=== PATIENT | female | born 1970 | race Caucasian/White ===

== ENCOUNTER 2024-07-14 08:30 | Outpatient (RCR) | payer MEDICAID, SELFPAY ==
--- NOTE | 2024-07-05 09:28 | PT.OIERPT ---
PT OP Initial Eval Patient Information Outpatient Physical Therapy Treatment Date: 07/05/24 Visit Reasons: Osteoarthritis of knee Medical Diagnosis: M17.9 Treatment Dx #1: B knee pain Start of Care: 07/05/24 Date of Onset: 10 yrs ago Smoking Status Smoking Status: Never smoker Initial Assessment Subjective: Pt is 53 yr old female who c/o B knee pain with long Hx. They hurt all day and pain level varies. Pt tries to exercise to lose weight but the knee pain limits standing and exercise tolerance. PMH: HTN, DM, morbid obesity. Imaging: Xrays in EMR -moderate to advanced OA B knees Pt goal: less pain to walk further Objective: B knee AROM: Flexion: 90 deg Extension: full Strength: 4-/5 quads and HS without pain Assessment: Pt presentation consistent with advanced B knee OA. Pt is morbidly obese and therapy may help her get some movement and exercise but it won't get rid of the pain and pt has poor rehab potential to meet goals due to severity of ssx. Pt may benefit from aquatic therapy and recumbent bike at home for temporary pain relief. Short Term and Nursing Home Goals 1. Ind with HEP 2. Tolerate 15 minutes of recumbent bike Treatment Plan 1. Manual therapy ? 2. Therex ? 3. Modalities as indicated, MHP, ice, estim Frequency and Duration: 1-2x a week for 2-3 trial visits Certification Dates: 07/05/24 to 10/03/24 Procedure Charges OP PT Eval Mod Complex 30 minutes: Yes
--- NOTE | 2024-07-08 09:16 | PT.ODAYNRPT ---
PT Outpatient Daily Note OP Daily Note Outpatient Physical Therapy Treatment Date: 07/08/24 Visit Reasons: Osteoarthritis of knee Subjective: Pain after last visit in B knees Objective: See F/S for therex Assessment: Pt did the bike for 16' with B knee pain with most movements Plan: Continue as tolerated Length of Time (minutes) of Treatment: 25 Minutes Procedure Charges Therapeutic Exercise 30 minutes: Yes
--- NOTE | 2024-07-14 10:13 | PT.ODS1RPT ---
PT OP Progress/Discharge Note Date of Service: 07/14/24 Progress Note/DC Note Progress Note/Discharge Note: DC Note Patient Information Visit Reasons: Osteoarthritis of knee Treatment Dx #1: B knee pain Service Continue Service or Discharge: Discharge Discharge Date: 07/14/24 Status Subjective: Continued pain after last visit in B knees Objective: See F/S for therex Same as time of evaluation Assessment: Pt attended the evaluation and 2 Rx visits with continued high pain in B knees. Pt did the bike for 16' to meet that goal and is independent with HEP. Pt not likely going to meet pain relief goals with conservative Rx since pain returns. Pt may benefit from aquatic therapy and recumbent bike for exercise. Plan: D/C with HEP Goals Achieved: 1. Ind with HEP 2. Tolerate 15 minutes of recumbent bike Procedure Charges Therapeutic Exercise 30 minutes: Yes
== END 2024-07-31 23:59 | disposition home or self-care (01) ==
LOC: CPTX 08:30
PROVIDERS: PCP Nurse Practitioner Family; Referring Provider Nurse Practitioner Family; Visit Provider Nurse Practitioner Family
DX: M25.562 Pain in left knee (principal); M25.561 Pain in right knee; E66.01 Morbid (severe) obesity due to excess calories; I10 Essential (primary) hypertension; E11.9 Type 2 diabetes mellitus without complications
CPT/HCPCS: 97110; 97162

== ENCOUNTER 2024-10-20 08:03 | Emergency (ER) | payer MEDICAID, SELFPAY ==
[2024-10-20 08:16] VITALS: BP 164/93; PULSE 89; RESP 18; TEMP 36.9; O2SAT 95; BMI 61.2
--- NOTE | 2024-10-20 08:28 | XR_ITS ---
Examination: CT abdomen and pelvis without contrast. Coronal 3-D reconstructions. Sagittal 2-D reconstructions. Date and time of exam:October 20, 2024 0837 hours Comparison November 02, 2014 INDICATIONS: Onset right-sided abdominal pain today CTDI: vol (mGy): 25.4 DLP: (mGycm): 1751 Technique: Axial images of the abdomen have been obtained, 3 mm slice thickness Intravenous contrast material has not been administered. Low dose protocols were performed. One or more of the following dose reduction techniques were used; automated exposure control, adjustment of the mA and/or KV according to patient size, use of iterative reconstruction technique. Findings: No focal liver or splenic lesions Fatty infiltration throughout the liver Hepatomegaly 21 cm No gallstones No pancreatic or adrenal mass Mild bilateral renal parenchymal scar formation No renal or ureteral calculi, no hydronephrosis No bowel obstruction 20 mm fat-containing umbilical hernia Normal appendix No diverticulitis Moderate stool in the rectum Anteverted uterus, suspicious for uterine fundal mass Contracted urinary bladder Advanced degenerative disc disease L2-L3 IMPRESSION: Hepatomegaly, 21 cm fatty infiltration throughout the liver Mild bilateral renal parenchymal scar formation Normal appendix No bowel obstruction or diverticulitis Recommend pelvic sonography follow-up to exclude uterine fundal mass
--- NOTE | 2024-10-20 08:28 | PD.EDRME ---
Rapid Medical Screening Exam RME Arrival date/time: 10/20/24 08:03 54-year-old female presents emergency department complaint of right-sided abdominal pain Chief Complaint: Abdominal Pain Vital signs: Vital Signs Temperature 98.4 F 10/20/24 08:16 Pulse Rate 89 10/20/24 08:16 Respiratory Rate 18 10/20/24 08:16 Blood Pressure 164/93 H 10/20/24 08:16 Pulse Oximetry (%) 95 10/20/24 08:16 Oxygen Delivery Method Room Air 10/20/24 08:16
[2024-10-20 10:18] LABS: Basophils # (Auto) 0.1 Thou/mm3 (0.0-0.2); Basophils % (Auto) 1 % (0-2.5); Eosinophils # (Auto) 0.4 Thou/mm3 (0.0-0.5); Eosinophils % (Auto) 3 % (0-10); Hematocrit 38.5 % (36.0-46.0); Hemoglobin 12.3 g/dL (12.0-16.0); Immature Granulocytes % (Auto) 0 % (0-0); Immature Granulocytes Auto 0.05 Thou/mm3 (0.00-0.00); Lymphocytes # (Auto) 3.2 Thou/mm3 (1.0-4.8); Lymphocytes % (Auto) 28 % (10-50); Mean Corpuscular HGB Conc 31.9 g/dl (31.0-37.0); Mean Corpuscular Hemoglobin 27.9 pg (25.0-35.0); Mean Corpuscular Volume 87 fL (80-100); Monocytes # (Auto) 0.6 Thou/mm3 (0.0-0.8); Monocytes % (Auto) 6 % (0-12); Neutrophils % (Auto) 62 % (37-80); Nucleated Red Blood Cell % 0 /100 WBC (0); Platelet Count 270 Thou/mm3 (140-440); RDW Standard Deviation 42.5 fL (36.4-46.3); Red Blood Count 4.41 Miln/mm3 (4.00-5.20); White Blood Count 11.3 Thou/mm3 (3.6-11.0)
[2024-10-20 10:49] LABS: Alanine Aminotransferase 9 U/L (10-49); Albumin, Serum 4.3 gm/dL (3.5-5.0); Albumin/Globulin Ratio 1.4 (1.2-2.2); Alkaline Phosphatase 113 U/L (46-116); Anion Gap 6 (7-16); Aspartate Amino Transferase 12 U/L (0-34); BUN/Creatinine Ratio 28 Ratio (12-20); Bilirubin,Total 0.3 mg/dL (0.3-1.2); Blood Urea Nitrogen 17 mg/dL (9-23); Calcium 9.3 mg/dL (8.3-10.6); Calcium (Corrected) 9.3 mg/dL (8.5-10.1); Carbon Dioxide 31.9 mMol/L (20.0-31.0); Chloride 103 mMol/L (98-107); Creatinine (Component) 0.6 mg/dL (0.6-1.3); Estimated Creatinine Clearance 180.7 mL/min (>60); Glucose 141 mg/dL (74-106); Lipase 25 U/L (12-53); Osmolality,Calculated 284 (275-295); Potassium 4.2 mMol/L (3.4-5.1); Sodium 141 mMol/L (136-145); Total Protein 7.3 gm/dL (5.7-8.2); eGFR > 60 See Note
[2024-10-20 11:49] LABS: Collection Type, Urine Clean Catch
[2024-10-20 12:01] LABS: HCG Qualitative,Urine Negative
[2024-10-20 12:15] LABS: Bilirubin,Urine Negative (Negative); Blood,Urine Negative (Negative); Clarity,Urine Clear (Clear/Hazy); Color,Urine Yellow (Lt Yel-Yel); Culture Indicated,Urine Not Indicated; Glucose, Urine Negative (Negative); Hyaline Casts,Urine < 1 /hpf (0-1); Ketones,Urine Negative (Negative); Leukocyte Esterase,Urine Negative (Negative); Nitrite,Urine Negative (Negative); PH,Urine 6.5 (5.0-7.0); Protein,Urine 1+ (Neg - Trace); RBC,Urine 3 /hpf (0-3); Specific Gravity,Urine 1.026 (1.001-1.035); Squamous Epithelial Cell,Urine 3 /hpf (0-5); Urobilinogen,Urine Negative mg/dL (0.0-1.0); WBC,Urine 2 /hpf (0-5)
--- NOTE | 2024-10-20 12:31 | PD.EDABDPN ---
ED Abdominal Pain RME/HPI General Chief Complaint: Abdominal Pain Stated complaint: RIGHT SIDE KNOT X 4 DAYS Time seen by provider: 10/20/24 12:23 Arrival date/time: 10/20/24 08:03 RME / HPI RME / HPI narrative: 54-year-old female morbidly obese presents emergency department complaint of right-sided upper abdominal pain, ongoing for the last 4 days, also noted a knot on the area. Patient denies any fever vomiting diarrhea or constipation. Denies any other complaints no medications taken prior to arrival Related Data Home Medications ?Medication ?Instructions ?Recorded ?Confirmed atorvastatin 10 mg tablet 20 mg PO QPM ##0 09/06/17 10/08/20 metformin 500 mg tablet 500 mg PO QDAY ##0 09/06/17 10/08/20 amlodipine 10 mg tablet 10 mg PO QDAY 10/08/20 10/08/20 gabapentin 300 mg capsule 300 mg PO TID 10/08/20 10/08/20 hydrochlorothiazide 25 mg tablet 25 mg PO QDAY 10/08/20 10/08/20 lisinopril 40 mg tablet 40 mg PO QDAY 10/08/20 10/08/20 metoprolol tartrate 50 mg tablet 50 mg PO BID 10/08/20 10/08/20 Previous Rx's ?Medication ?Instructions ?Recorded albuterol sulfate 90 mcg/actuation 2 puff INH Q4HRRT PRN SOB or 10/10/20 aerosol inhaler (Ventolin HFA) wheezing #6.7 grams amoxicillin 875 mg-potassium 1 tab PO BID #6 tabs 10/10/20 clavulanate 125 mg tablet (Augmentin) dexamethasone 6 mg tablet 6 mg PO QDAY #7 tabs 10/10/20 (Decadron) doxycycline hyclate 100 mg capsule 100 mg PO BID #6 caps 10/10/20 Allergies Allergy/AdvReac Type Severity Reaction Status Date / Time No Known Allergies Allergy Verified 10/20/24 08:05 Review of Systems Review of Systems Narrative Review of Systems: Review of system reviewed and within normal limits except mentioned in HPI ED Exam Narrative Physical exam: VITAL SIGNS: Reviewed. GENERAL APPEARANCE: Alert and interactive, follows commands, no acute distress, HEAD AND FACE: Non-traumatic. ENT: PERRL, pink conjunctivitis, eyelid no trauma, Mucous membrane moist. NECK: Supple, nontender, no nuchal rigidity. CHEST: No tenderness, no crepitus, no paradoxical movement, no retractions. LUNGS: Clear, well ventilated, symmetric, no rales, no wheezing, no ronchi, no stridor, good breath sounds bilaterally. HEART: Regular rate, regular rhythm, no murmur, no gallops. ABDOMEN: Soft, positive bowel sounds, nondistended, no guarding, tenderness noted on the right upper lateral abdomen, I did not notice any masses palpated., no rebound, no masses, RECTAL: Deferred. GENITAL: Deferred. NEUROLOGICAL: Gross motor function intact sensory function intact, Appropriate for age. MUSCULOSKELETAL: low back nontender, full range of motion. EXTREMITIES: Nontender, full range of motion. SKIN: Color pink, dry, no rash, no lacerations, no abrasions, no contusions. LYMPHATICS: Deferred. Course Quality Measures none Orders Category Date Time Status CT abdomen pelvis wo con Stat Exams 10/20/24 08:28 Completed CBC Stat Lab 10/20/24 10:06 Completed Comprehensive Metabolic Panel Stat Lab 10/20/24 10:06 Completed HCG Qualitative,Urine Stat Lab 10/20/24 09:35 Completed Lipase Stat Lab 10/20/24 10:06 Completed UA, C/S IF [Urinalysis, C/S if Indicated] Stat Lab 10/20/24 09:35 Completed Vital Signs Vital signs: Vital Signs Temperature 98.4 F 10/20/24 08:16 Pulse Rate 89 10/20/24 08:16 Respiratory Rate 18 10/20/24 08:16 Blood Pressure 164/93 H 10/20/24 08:16 Pulse Oximetry (%) 95 10/20/24 08:16 Oxygen Delivery Method Room Air 10/20/24 08:16 Abdominal Pain MDM MDM Narrative MDM Narrative:: 54-year-old female morbidly obese presents emergency department complaint of right-sided upper abdominal pain, ongoing for the last 4 days, also noted a knot on the area. Patient denies any fever vomiting diarrhea or constipation. Denies any other complaints no medications taken prior to arrival Patient's workup all came back unremarkable. CT scan of the abdomen and pelvis showed Hepatomegaly, 21 cm fatty infiltration throughout the liver Mild bilateral renal parenchymal scar formation Normal appendix No bowel obstruction or diverticulitis Recommend pelvic sonography follow-up to exclude uterine fundal mass Results discussed with the patient and family. Patient appears nontoxic and hemodynamically stable. Patient discharged home and instructed to follow-up with primary care provider in 24 to 48 hours. Instructed to return to the emergency department immediately if worsening of symptoms Patient data External records reviewed:: None Clinical information provided by:: patient Social determinants that could affect healthcare access:: none Patient has the following chronic illnesses:: Morbid obesity, hypertension How is presenting disease/condition affected by chronic disease/condition?: uneffected by Evaluation data The following diagnostics were reviewed and interpreted by me:: lab results and radiology exam(s) Lab and/or radiology exams considered but not ordered:: None Interpretation Summary: See results in [facility] Medications / Prescriptions Medications or Prescriptions considered but not ordered:: None Medication administrations:: None Consultations Consultation(s) initiated? (list below): No Diagnosis Differential diagnosis abdominal pain: abdominal pain, constipation and pancreatitis Most likely diagnosis given after review of the tests above:: Abdominal pain Admission Indicated Admission indicated?: not indicated Admission Request Was there a request for admission?: No Disposition Plan Disposition Plan: Discharge Discharge Attestation Discharge Attestation: The patient and all family members were given an opportunity to ask questions and understood the discharge instructions. Discharge instructions specifically effects, indications for sooner follow up or return to the emergency department, and the expected course of current diagnosis. Patient condition: Stable Discharge Plan Plan Patient Disposition: HOME (Self Care) Disposition Comment: stable Prescriptions/Referrals Prescriptions/Med Rec: No Action metformin 500 mg Tablet 500 mg PO QDAY Qty: 0 atorvastatin 10 mg Tablet 20 mg PO QPM Qty: 0 amlodipine 10 mg Tablet 10 mg PO QDAY metoprolol tartrate 50 mg Tablet 50 mg PO BID gabapentin 300 mg Capsule 300 mg PO TID hydrochlorothiazide 25 mg Tablet 25 mg PO QDAY lisinopril 40 mg Tablet 40 mg PO QDAY albuterol sulfate [Ventolin HFA] 90 mcg/actuation Hfa Aerosol Inhaler 2 puff INH Q4HRRT PRN (Reason: SOB or wheezing) Qty: 6.7 0RF dexamethasone [Decadron] 6 mg tablet 6 mg PO QDAY Qty: 7 0RF amoxicillin-pot clavulanate [Augmentin] 875-125 mg tablet 1 tab PO BID Qty: 6 0RF doxycycline hyclate 100 mg capsule 100 mg PO BID Qty: 6 0RF Referrals: Tessa Renee FNP [Primary Care Provider] - In 1 week Problem List Clinical Impression: Abdominal pain, Umbilical hernia Patient/Caregiver Discharge Instructions Discharge Activity: activity as tolerated Education Materials: Abdominal Pain Additional Instructions: Thank you for the opportunity for serving you today. You are stable for discharged . You are advised to: Follow-up with your PCP in 1 to 2 days and asked for referral to general surgeon regarding your umbilical hernia Return to ED for worsening of symptoms Increase oral fluids Take [id number] Tylenol Motrin as needed for pain Print Language: Lithuanian Stand Alone Forms: Cathy Award Info., Patient Portal Info Letter DORIAN/MEREDITH Supervising Physician DORIAN/MEREDITH Supervising Physician: MD Ghada
== END 2024-10-20 13:26 | disposition home or self-care (01) ==
PROVIDERS: Nurse Practitioner Primary Care; Emergency Provider Emergency Medicine; PCP Nurse Practitioner Family
DX: K42.9 Umbilical hernia without obstruction or gangrene (principal); K76.0 Fatty (change of) liver, not elsewhere classified; I10 Essential (primary) hypertension; E66.01 Morbid (severe) obesity due to excess calories; Z68.44 Body mass index [BMI] 60.0-69.9, adult
CPT/HCPCS: 36415; 74176; 80053; 81001; 81025; 83690; 85025; 99284

== ENCOUNTER 2025-01-24 20:02 | Emergency (ER) | payer MEDICAID, SELFPAY ==
[2025-01-24 20:04] VITALS: BMI 64.0
[2025-01-24 21:16] VITALS: BP 131/80; PULSE 109; RESP 20; TEMP 38.1; O2SAT 95
--- NOTE | 2025-01-24 21:25 | PD.EDADULT ---
ED General RME/HPI General Chief complaint: Dental/Oral/Throat Stated complaint: throat pain and swelling Time Seen by Provider: 01/24/25 20:45 Arrival date/time: 01/24/25 20:02 RME / HPI RME / HPI narrative: Very pleasant 54-year-old female presents to the ED with a complaint of sore throat ongoing for approximately 5 days. She was seen in another emergency room and prescribed amoxicillin 500 mg twice daily. She feels that she is not getting any better and is actually getting worse. She has also been taking ibuprofen and Tylenol without much relief. She has painful swallowing. She denies any voice changes. She has had a runny nose and nasal congestion as well as right ear pain. Related Data Home Medications ?Medication ?Instructions ?Recorded ?Confirmed atorvastatin 10 mg tablet 20 mg PO QPM ##0 09/06/17 10/08/20 metformin 500 mg tablet 500 mg PO QDAY ##0 09/06/17 10/08/20 amlodipine 10 mg tablet 10 mg PO QDAY 10/08/20 10/08/20 gabapentin 300 mg capsule 300 mg PO TID 10/08/20 10/08/20 hydrochlorothiazide 25 mg tablet 25 mg PO QDAY 10/08/20 10/08/20 lisinopril 40 mg tablet 40 mg PO QDAY 10/08/20 10/08/20 metoprolol tartrate 50 mg tablet 50 mg PO BID 10/08/20 10/08/20 Previous Rx's ?Medication ?Instructions ?Recorded albuterol sulfate 90 mcg/actuation 2 puff INH Q4HRRT PRN SOB or 10/10/20 aerosol inhaler (Ventolin HFA) wheezing #6.7 grams amoxicillin 875 mg-potassium 1 tab PO BID #6 tabs 10/10/20 clavulanate 125 mg tablet (Augmentin) dexamethasone 6 mg tablet 6 mg PO QDAY #7 tabs 10/10/20 (Decadron) doxycycline hyclate 100 mg capsule 100 mg PO BID #6 caps 10/10/20 amoxicillin 875 mg-potassium 1 tab PO BID Exudative tonsillitis 01/24/25 clavulanate 125 mg tablet #20 tabs Allergies Allergy/AdvReac Type Severity Reaction Status Date / Time No Known Allergies Allergy Verified 10/20/24 08:05 Review of Systems Review of Systems Systems Reviewed: All systems reviewed, normal except as documented Past Medical History Past Medical History NEUROLOGIC: Negative Neurological Disorders, Cerebrovascular Accident, Transient Ischemic Attacks (TIA), Dementia, Alzheimer's Disease, Parkinson's Disease, Brain Tumor, Meningitis, Seizures, Epilepsy, Multiple Sclerosis, Cerebral Palsy, Amyotrophic Lateral Sclerosis (ALS/Xochitl Gehrig's), Guillain-[place] Syndrome, Spina Bifida, Paralysis, Peripheral Neuropathy, Campos's Palsy, Subdural Hematoma, Migraine, Head Trauma, Spinal Cord Injury or Traumatic Brain Injury CARDIAC: Positive Cardiac Disorders and Hypertension; Negative Myocardial Infarction, Cardiac Arrhythmia, Atrial Fibrillation, Angina, Heart Murmur, Coronary Artery Disease, Atherosclerotic Heart Disease, Peripheral Vascular Disease, Hypercholesterolemia, Aneurysm, Congestive Heart Failure, Congenital Heart Disease, Valvular Heart Disease, Rheumatic Fever, Cardiomyopathy, Edema, Pericarditis, Cellulitis, Deep Vein Thrombosis, Hypotension or Varicose Veins RESPIRATORY: Positive Asthma and Bronchitis; Negative Chronic Obstructive Pulmonary Disease (COPD), Emphysema, Pneumonia, Pulmonary Fibrosis, Cystic Fibrosis, Tuberculosis, Pulmonary Embolism, Pulmonary Edema or Sleep Apnea GASTROINTESTINAL: Negative Gastrointestinal Disorders, Hepatitis, Cirrhosis, Pancreatitis, Celiac Disease, Gall Bladder Disease, Gastrointestinal Bleed, Esophageal Varices, Frye's Esophagus, Colitis, Ulcerative Colitis, Diverticulitis, Diverticulosis, Ulcer, Colorectal Cancer, Irritable Bowel, Crohn's Disease, Obstructive Bowel, Hiatal Hernia, Hemorrhoids, Gastroesophageal Reflux Disease or Obesity GENITOURINARY: Negative Genitourinary Disorders, Renal Disease, Kidney Stones, Polycystic Kidney Disease, Neurogenic Bladder, Inguinal Hernia, Dialysis, Prostate Cancer or Benign Prostatic Hyperplasia REPRODUCTIVE: Negative Breast Cancer, Endometriosis, Genital Herpes, Gonorrhea, Pelvic Inflammatory Disease, Previous Pregnancies, Syphilis, Testicular Cancer or Uterine Prolapse MUSCULOSKELETAL: Positive Arthritis; Negative Musculoskeletal Disorders, Muscular Dystrophy, Myasthenia Gravis, Marfan's Syndrome, Bone Cancer, Rheumatoid Arthritis, Osteoporosis, Degenerative Disk Disease, Gout, Scoliosis, Carpal Tunnel Syndrome, Fibromyalgia, Fractures, Degenerative Joint Disease, Osteomyelitis or Poliovirus ENT: Negative Cataracts, Glaucoma, Blind, Retinal Detachment, Macular Degeneration, Ear Infection, Deafness, Head Trauma or Eye Prosthesis ENDOCRINE: Positive Endocrine Disorders and Diabetes Mellitus Type 2; Negative Diabetes Mellitus Type 1, Hypoglycemia, Mike's Syndrome, Tyrese's Disease, Hyperthyroidism, Hypothyroidism, Parathyroid Disease, Pituitary Disease, Systemic Lupus Erythematosus, Syndrome of Inappropriate Antidiuretic Hormone (SIADH), Adrenal Disease or Graves' Disease HEMATOLOGIC: Negative Blood Disorders, Anemia, Leukemia, Hemophilia, Thalassemia, Sickle Cell Disease or Clotting Problems PSYCHO/SOCIAL: Negative Psychiatric Problems, Schizophrenia, Recreational Drug Use, Bipolar Disorder, Depression, Anxiety, Self-Mutilation, Attention Deficit Disorder, Attention Deficit Hyperactivity Disorder, Depression, Post Traumatic Stress Disorder or Eating Disorder OTHER HISTORY: Positive Chicken Pox (date unknown); Negative Hospitalization, Autoimmune Disease, Down Syndrome, Autism, Developmental Delay, Shingles, Falls, Blood Transfusions, Blood Transfusion Reaction, Anesthesia Reactions, Organ Transplant, Chemotherapy, Radiation Therapy, Hyperbaric Therapy, MRSA, VRSA, Vancomycin-Resistant Enterococci, Human Immunodeficiency Virus (HIV), Measles, Mumps, Rubella (Mongolian Measles), Pertussis, Clostridium Difficile, Cancer, Breast Cancer, Cervical Cancer, Colorectal Cancer, Lung Cancer, Ovarian Cancer, Prostate Cancer or Testicular Cancer Family History FAMILY HISTORY: Positive Family Psychiatric Problems (brother bipolar, family depression), Family Respiratory Disorders (uncle lung cancer) and Family Surgery (C- section, tubal ligation); Negative Family Cardiac Disorders, Family Gastrointestinal Problems, Family Cancer or Family Anesthesia Reaction Surgical History SURGICAL: Positive Tubal Ligation and Section; Negative Cardiac Surgery, Open Heart Surgery, Coronary Artery Bypass Graft, Valve Replacement, Vascular Surgery, Coronary Stent, Cardiac Catheterization, Pacemaker, Angiogram, Auto Implanted Cardiovert Defib, Carotid Endarterectomy, Endocrine Surgery, Thyroidectomy, Ear Surgery, Tympanostomy Tube, Eye Surgery, Nose Surgery, Oral Surgery, Tonsillectomy, Adenoidectomy, Cochlear Implant, Corneal Transplant, Throat Surgery, Abdominal Surgery, Tracheostomy, Gastric Bypass Surgery, Gastrostomy, Bowel Surgery, Nephrectomy, Joint Replacement, Amputation, Open Reduction Internal Fixation, Arthroscopy, Neurologic Surgery, Brain Shunt, Mastectomy, Lumpectomy, Hysterectomy or Organ Transplant Social History SMOKING STATUS: Never smoker ED Exam Narrative Physical exam: Pleasant 54-year-old female, nontoxic-appearing, mild acute distress due to throat pain neck is supple, mild anterior cervical chain adenopathy R>L, TMs without erythema, nares are pale and boggy, right tonsil with erythema and exudate. No peritonsillar cellulitis or abscess noted. Lungs are clear, regular rate and rhythm without murmurs Course Course Course Narrative: Very pleasant 54-year-old female presents to the ED with a complaint of sore throat ongoing for approximately 5 days. She was seen in another emergency room and prescribed amoxicillin 500 mg twice daily. She feels that she is not getting any better and is actually getting worse. She has also been taking ibuprofen and Tylenol without much relief. She has painful swallowing. She denies any voice changes. She has had a runny nose and nasal congestion as well as right ear pain. Pleasant 54-year-old female, nontoxic-appearing, mild acute distress due to throat pain neck is supple, mild anterior cervical chain adenopathy R>L, TMs without erythema, nares are pale and boggy, right tonsil with erythema and exudate. No peritonsillar cellulitis or abscess noted. Lungs are clear, regular rate and rhythm without murmurs Patient was given Augmentin 875mg PO prior to discharge. Quality Measures none Orders Category Date Time Status Amoxicillin/Pot Clav 875 [Augmentin 875] Med 01/24/25 21:28 Discontinued 1 tab PO X1 ONE Patient given Augmentin 875 mg p.o. Prior to discharge. Vital Signs Vital signs: Vital Signs Temperature 100.6 F H 01/24/25 21:16 Pulse Rate 109 H 01/24/25 21:16 Respiratory Rate 20 01/24/25 21:16 Blood Pressure 131/80 H 01/24/25 21:16 Pulse Oximetry (%) 95 01/24/25 21:16 Oxygen Delivery Method Room Air 01/24/25 21:16 Discharge Plan Plan Patient Disposition: HOME (Self Care) Discharge Disposition comment: Stable and improved Prescriptions/Referrals Prescriptions/Med Rec: New amoxicillin-pot clavulanate 875-125 mg tablet 1 tab PO BID Qty: 20 0RF No Action metformin 500 mg Tablet 500 mg PO QDAY Qty: 0 atorvastatin 10 mg Tablet 20 mg PO QPM Qty: 0 amlodipine 10 mg Tablet 10 mg PO QDAY metoprolol tartrate 50 mg Tablet 50 mg PO BID gabapentin 300 mg Capsule 300 mg PO TID hydrochlorothiazide 25 mg Tablet 25 mg PO QDAY lisinopril 40 mg Tablet 40 mg PO QDAY albuterol sulfate [Ventolin HFA] 90 mcg/actuation Hfa Aerosol Inhaler 2 puff INH Q4HRRT PRN (Reason: SOB or wheezing) Qty: 6.7 0RF dexamethasone [Decadron] 6 mg tablet 6 mg PO QDAY Qty: 7 0RF amoxicillin-pot clavulanate [Augmentin] 875-125 mg tablet 1 tab PO BID Qty: 6 0RF doxycycline hyclate 100 mg capsule 100 mg PO BID Qty: 6 0RF Referrals: Iman Ortez NP [Primary Care Provider] - In 1 week Problem List Clinical Impression: Exudative tonsillitis Patient/Caregiver Discharge Instructions Education Materials: Tonsillitis in Adults Additional Instructions: Increase your water consumption while taking antibiotics. Take the antibiotics as prescribed and complete the course even though you may be feeling better. Follow-up with your primary care physician in 24 to 48 hours. Return to the ED for any new or worsening symptoms. Print Language: Yoruba Stand Alone Forms: Cathy Award Info., Patient Portal Info Letter DORIAN/MEREDITH Supervising Physician DORIAN/MEREDITH Supervising Physician: Dr Vicenta JOSHUA Narrative Sign out note: N/A JOSIANE hospital course: Very pleasant 54-year-old female presents to the ED with a complaint of sore throat ongoing for approximately 5 days. She was seen in another emergency room and prescribed amoxicillin 500 mg twice daily. She feels that she is not getting any better and is actually getting worse. She has also been taking ibuprofen and Tylenol without much relief. She has painful swallowing. She denies any voice changes. She has had a runny nose and nasal congestion as well as right ear pain. Pleasant 54-year-old female, nontoxic-appearing, mild acute distress due to throat pain neck is supple, mild anterior cervical chain adenopathy R>L, TMs without erythema, nares are pale and boggy, right tonsil with erythema and exudate. No peritonsillar cellulitis or abscess noted. Lungs are clear, regular rate and rhythm without murmurs Patient was given Augmentin 875mg PO prior to discharge. Procedures done or offered: Patient was given Augmentin 875mg PO prior to discharge. Clinical Information Provided by patient Medical Records Reviewed None Meds/Rx Considered, not Ordered None Labs/Rad/Tests considered, not Ordered None Chronic Illness/Social Conditions which may negatively complicate care or outcome(s)-explain: None or not applicable EKG EKG not done Lab Interpretation Labs: none Imaging Imaging interpretation: none Medication Administration(s) Medication Administration History Discontinued Medications Amoxicillin/Clavulanate Potassium (Amoxicillin/Pot Clav 875 Tablet) 1 tab PO X1 ONE Stop: 01/24/25 21:29 Last Admin: 01/24/25 21:45 Dose: 1 tab Documented By: SHAKILA Augmentin 875mg PO Diagnosis Differential diagnosis: Tonsillitis, strep pharyngitis, eustachian tube dysfunction, viral syndrome Most likely dx, and/or detailed dx discussion: Exudative tonsillitis Dispositon Disposition: Discharge Home Disposition comments: Stable and improved
[2025-01-24] MEDS: AMOXICILLIN/POT CLAV 875 TABLET 1 TAB PO (21:45)
== END 2025-01-24 22:29 | disposition home or self-care (01) ==
PROVIDERS: Emergency Provider Emergency Medicine; PCP Nurse Practitioner Family
DX: J03.90 Acute tonsillitis, unspecified (principal)
CPT/HCPCS: 99282; A9270